=== PATIENT | female | born 1945 | race Caucasian/White ===

== ENCOUNTER 2016-07-17 08:15 | Emergency (ER) | payer MEDICARE, OTHER ==
[~2016-07-17 08:15] MED LIST: ADULT ASPIRIN81 MG PO; AIRET0.83 MG/ML IH; ASPIR-LOW81 MG; ASPIRIN; ASPIRIN325 M3 PO; ASPIRIN81 M1 PO; AUGMENTIN 875-1 EAC2 PO; AVALIDE 300-12.1 TAB; AZO DINE PO; CHERATUSSIN AC118 M1 PO; CPAP; CULTURELLE1 EAC1 PO; CYMBALTA60 M1 PO; CYMBALTA60 MG; CYMBALTA60 MG PO; DIFLUCAN150 MG PO; DIOVAN HCT 160/1 TA1 PO; DIOVAN HCT 3201 EACH PO; EFFEXOR; EFFEXOR XR150 M1 PO; EFFEXOR XR150 MG PO; FENOFIBRATE134 MG PO; FENTANYL1 EAC3 TD; FISH OIL 1,2001 CAP; FISH OIL 1,2001 CAP PO; FISH OIL 1,2001 EAC5 PO; FISH OIL SOFTG1 EAC1 PO; FISH OIL SOFTGE1 CA1 PO; FISH OIL1 CAP; GLUCOPHAGE1000 MG PO; GLUCOPHAGE500 M1 PO; GLUCOPHAGE500 M3 PO; GLUCOPHAGE500 MG; GLUCOPHAGE500 MG PO; GREEN COFFEE BEAN EX PO; HUMULIN N100 U/ML; HUMULIN N100 U/ML SQ; HUMULIN R 500; HUMULIN R U500 SC; HUMULIN R100 U/ML; HUMULIN R500 UNIT/2 SC; HYDROCODON-ACE1 EA16 PO; KEFLEX500 M4 PO; KLONOPIN1 M1 PO; LANTUS SOL100 UNIT/1 SC; LANTUS SOLOSTAR3 ML SQ; LEVAQUIN500 M1 PO; LEVAQUIN750 MG PO; LIPITOR40 M1 PO; LIPITOR40 MG PO; LOFIBRA PO; LOFIBRA134 MG PO; LYRICA50 MG; LYRICA75 MG; LYRICA75 MG/CAP PO; MIRALAX17 G2 PO; MOBIC; MOBIC15 M2 PO; MOBIC7.5 M2 PO; MULTIVITAMINS1 EAC6 PO; NORCO 5-325 TA1 EACH PO; NOVOLIN N100 U/ML SQ; NOVOLIN R100 U/ML; OMEPRAZOLE; OMEPRAZOLE20 M4 PO; OXYCODONE HCL5 M1 PO; PERCOCET 5-3251 EACH PO; PREDNISONE10 M1 PO; PREDNISONE10 MG PO; PREDNISONE20 M1 PO; RELAFEN; SENNA PLUS TAB1 EAC1 PO; SIMVASTATIN80 MG PO; SKELAXIN800 M3 PO; TOUJEO SOL300 UNIT/1 SC; TRILIPIX135 MG PO; TYLENOL EXTRA500 M1 PO; TYLENOL WITH C1 EACH PO; ULTRAM50 M1 PO; VICTOZA 2-0.6 MG/0.1 SC; VICTOZA0.6 MG/0.1 SQ; VITAMIN C1000 M1 PO; VITAMIN C1000 MG; VITAMIN C1000 MG PO; VITAMIN E1000 UNIT; VITAMIN E400 UNI4 PO; VITAMIN PO; VYTORIN 10/40 T1 TAB; XANAX; XANAX0.25 M1 PO; XANAX0.25 MG PO; ZITHROMAX250 M1 PO; ZOLOFT100 MG; [UNRECOGNIZED DRUG - OTHER]
[2016-07-17] MEDS ORDERED: INDERAL XL80 MG PO (08:55)
[2016-07-17] MEDS ORDERED: NORCO 5-325 TA1 EACH PO (10:28)
[2016-11-20] MEDS ORDERED: MECLIZINE HCL25 M3 PO (12:17)
[2016-11-20] MEDS ORDERED: TOUJEO SOL300 UNIT/1 SC (12:18)
[2016-11-20] MEDS ORDERED: KLONOPIN1 M1 PO (12:19)
[2016-11-20] MEDS ORDERED: ZOFRAN ODT4 MG SL (12:22)
[2016-11-20] MEDS ORDERED: GARCINIA CAMBO1 EAC1 PO (12:23)
[2016-11-20] MEDS ORDERED: ACETAMINOPHEN1 EAC4 PO (12:23)
[2016-11-20] MEDS ORDERED: APPLE CIDER VINEGAR PO (12:24)
[2016-11-20] MEDS ORDERED: BREO ELLIPTA 11 EAC1 INH (12:24)
[2016-11-20] MEDS ORDERED: XANAX0.25 M1 PO (14:27)
[2016-11-20] MEDS ORDERED: LOMOTIL 2.5-0.1 EACH PO (14:27)
[2016-11-21] MEDS ORDERED: ASPIRIN325 M3 PO (18:14)
[2016-12-18] MEDS ORDERED: KLONOPIN1 M1 PO (16:51)
[2016-12-18] MEDS ORDERED: ZOFRAN4 M2 PO (16:52)
[2016-12-18] MEDS ORDERED: TYLENOL PM EX-1 EAC4 PO (16:54)
[2016-12-26] MEDS ORDERED: PERCOCET 5-3251 EACH PO (16:26)
[2016-12-26] MEDS ORDERED: [UNRECOGNIZED DRUG - REMARK] (23:35)
[2016-12-27] MEDS ORDERED: VALSARTAN-HCTZ1 EA13 PO (12:14)
[2016-12-27] MEDS ORDERED: BUTALB-ACETAMI1 EAC1 PO (12:15)
[2016-12-27] MEDS ORDERED: CALAN SR120 M1 PO (12:18)
[2016-12-27] MEDS ORDERED: IMITREX100 M2 PO (12:21)
[2016-12-27] MEDS ORDERED: FISH OIL 1,2001 EAC4 PO (12:22)
[2016-12-27] MEDS ORDERED: [UNRECOGNIZED DRUG - CODE] PO (12:22)
[2016-12-27] MEDS ORDERED: DELTASONE20 MG PO (12:25)
[2016-12-27] MEDS ORDERED: PERCOCET 5-3251 EACH PO (12:30)
== END 2016-07-17 10:51 ==
LOC: EDMED 08:15
DX: S16.1XXA Strain of muscle, fascia and tendon at neck level, initial encounter (principal); S20.211A Contusion of right front wall of thorax, initial encounter; E11.9 Type 2 diabetes mellitus without complications; Z79.899 Other long term (current) drug therapy; W06.XXXA Fall from bed, initial encounter; Y92.013 Bedroom of single-family (private) house as the place of occurrence of the external cause

== ENCOUNTER 2016-07-24 17:18 | Emergency (ER) | payer MEDICARE, OTHER ==
[~2016-07-24 17:18] MED LIST changes: +INDERAL XL80 MG PO
[2016-07-24 18:42] LABS: BASO % 0.4 % (0-2); EOS % 2.5 % (0-7); EOSINOPHIL ABSOLUTE COUNT 0.1 tho/cmm (0.0-0.7); HGB-HEMOGLOBIN 13.2 gm/dl (12.0-15.5); IMMATURE GRANULOCYTES ABSOLUTE 0.01 tho/cmm (0-0.03); IMMATURE GRANULOCYTES PERCENT 0.2 % (0-0.3); LYMPH % 44.8 % (20-45); LYMPH ABSOLUTE COUNT 2.3 tho/cmm (0.8-4.5); MCH (MEAN CORPUSCULAR HGB) 30.5 pg (28.0-32.0); MCHC MEAN CORPUSCULAR HGB CONC 33.8 % (32.0-36.0); MCV (MEAN CELL VOLUME) 90.1 fl (82.0-96.0); MEAN PLATELET VOLUME 11.9 cmc (9.4-12.4); MONO % 7.6 % (0-12); MONOCYTE ABSOLUTE COUNT 0.4 tho/cmm (0.0-1.2); NEUTROPHIL ABSOLUTE COUNT 2.3 tho/cmm (1.6-8.0); NEUTROPHIL-AUTOMATED 2.3 tho/cmm (1.6-8.0); NEUTROPHILS % 44.5 % (40-80); PLATELET COUNT 112 tho/cmm (150-450); RED BLOOD COUNT 4.33 mil/cmm (4.00-5.20); RED CELL DISTRIBUTION WIDTH 13.4 % (12.4-16.4); WHITE BLOOD COUNT 5.2 tho/cmm (4.0-10.0)
[2016-07-24 19:02] LABS: ANION GAP 15 mmol/L (0-20); BLOOD UREA NITROGEN 30 mg/dl (6-24); CALCIUM 9.7 mg/dl (8.5-10.5); CARBON DIOXIDE-VENOUS 24 mmol/L (22-32); CHLORIDE 108 mmol/l (96-110); CREATININE 1.18 mg/dl (0.50-1.10); GLUCOSE 181 mg/dL (70-110); SODIUM 143 mmol/L (135-145); eGFR VALUE FOR BLACK 54 mL/Min
[2016-07-24 19:03] LABS: POTASSIUM 4.4 mmol/L (3.7-5.1)
[2016-07-24] MEDS ORDERED: PERCOCET 5-3251 EACH PO (19:32)
[2016-07-24] MEDS ORDERED: ZOFRAN ODT4 MG PO (19:32)
[2016-11-20] MEDS ORDERED: MECLIZINE HCL25 M3 PO (12:17)
[2016-11-20] MEDS ORDERED: TOUJEO SOL300 UNIT/1 SC (12:18)
[2016-11-20] MEDS ORDERED: KLONOPIN1 M1 PO (12:19)
[2016-11-20] MEDS ORDERED: ZOFRAN ODT4 MG SL (12:22)
[2016-11-20] MEDS ORDERED: GARCINIA CAMBO1 EAC1 PO (12:23)
[2016-11-20] MEDS ORDERED: ACETAMINOPHEN1 EAC4 PO (12:23)
[2016-11-20] MEDS ORDERED: APPLE CIDER VINEGAR PO (12:24)
[2016-11-20] MEDS ORDERED: BREO ELLIPTA 11 EAC1 INH (12:24)
[2016-11-20] MEDS ORDERED: LOMOTIL 2.5-0.1 EACH PO (14:27)
[2016-11-20] MEDS ORDERED: XANAX0.25 M1 PO (14:27)
[2016-11-21] MEDS ORDERED: ASPIRIN325 M3 PO (18:14)
[2016-12-18] MEDS ORDERED: KLONOPIN1 M1 PO (16:51)
[2016-12-18] MEDS ORDERED: ZOFRAN4 M2 PO (16:52)
[2016-12-18] MEDS ORDERED: TYLENOL PM EX-1 EAC4 PO (16:54)
[2016-12-26] MEDS ORDERED: PERCOCET 5-3251 EACH PO (16:26)
[2016-12-26] MEDS ORDERED: [UNRECOGNIZED DRUG - REMARK] (23:35)
[2016-12-27] MEDS ORDERED: VALSARTAN-HCTZ1 EA13 PO (12:14)
[2016-12-27] MEDS ORDERED: BUTALB-ACETAMI1 EAC1 PO (12:15)
[2016-12-27] MEDS ORDERED: CALAN SR120 M1 PO (12:18)
[2016-12-27] MEDS ORDERED: IMITREX100 M2 PO (12:21)
[2016-12-27] MEDS ORDERED: [UNRECOGNIZED DRUG - CODE] PO (12:22)
[2016-12-27] MEDS ORDERED: FISH OIL 1,2001 EAC4 PO (12:22)
[2016-12-27] MEDS ORDERED: DELTASONE20 MG PO (12:25)
[2016-12-27] MEDS ORDERED: PERCOCET 5-3251 EACH PO (12:30)
== END 2016-07-24 19:45 ==
LOC: EDMED 17:18
PROVIDERS: Emergency Medicine
DX: F07.81 Postconcussional syndrome (principal); R07.89 Other chest pain; E11.65 Type 2 diabetes mellitus with hyperglycemia; E11.22 Type 2 diabetes mellitus with diabetic chronic kidney disease; I12.9 Hypertensive chronic kidney disease with stage 1 through stage 4 chronic kidney disease, or unspecified chronic kidney disease; N18.9 Chronic kidney disease, unspecified; E78.5 Hyperlipidemia, unspecified; Z90.10 Acquired absence of unspecified breast and nipple; Z79.82 Long term (current) use of aspirin; Z79.4 Long term (current) use of insulin; Z79.899 Other long term (current) drug therapy

== ENCOUNTER 2016-12-10 12:49 | Emergency (ER) | payer MEDICARE, OTHER ==
[~2016-12-10] VITALS: Ht 160 cm; Wt 104.3 kg
[~2016-12-10 12:49] MED LIST changes: +ACETAMINOPHEN1 EAC4 PO; +APPLE CIDER VINEGAR PO; +ASPIRIN325 M3; +BREO ELLIPTA 11 EAC1 INH; +GARCINIA CAMBO1 EAC1 PO; +LOMOTIL 2.5-0.1 EACH PO; +LYRICA150 MG/CAP PO; +MECLIZINE HCL25 M3 PO; +ZOFRAN ODT4 MG PO; +ZOFRAN ODT4 MG SL
[2016-12-10 15:34] LABS: BASO % 0.2 % (0-2); EOS % 5.6 % (0-7); EOSINOPHIL ABSOLUTE COUNT 0.2 tho/cmm (0.0-0.7); HCT-HEMATOCRIT 37.1 % (34.0-49.0); HGB-HEMOGLOBIN 12.4 gm/dl (12.0-15.5); IMMATURE GRANULOCYTES ABSOLUTE 0.01 tho/cmm (0-0.03); IMMATURE GRANULOCYTES PERCENT 0.2 % (0-0.3); LYMPH % 41.6 % (20-45); LYMPH ABSOLUTE COUNT 1.8 tho/cmm (0.8-4.5); MCH (MEAN CORPUSCULAR HGB) 30.8 pg (28.0-32.0); MCHC MEAN CORPUSCULAR HGB CONC 33.4 % (32.0-36.0); MCV (MEAN CELL VOLUME) 92.1 fl (82.0-96.0); MONO % 8.6 % (0-12); MONOCYTE ABSOLUTE COUNT 0.4 tho/cmm (0.0-1.2); NEUTROPHIL ABSOLUTE COUNT 1.9 tho/cmm (1.6-8.0); NEUTROPHIL-AUTOMATED 1.9 tho/cmm (1.6-8.0); NEUTROPHILS % 43.8 % (40-80); PLATELET COUNT 141 tho/cmm (150-450); RED BLOOD COUNT 4.03 mil/cmm (4.00-5.20); RED CELL DISTRIBUTION WIDTH 13.3 % (12.4-16.4); WHITE BLOOD COUNT 4.3 tho/cmm (4.0-10.0)
[2016-12-10 15:45] LABS: ANION GAP 7 mmol/L (0-20); BLOOD UREA NITROGEN 23 mg/dl (6-24); CALCIUM 9.2 mg/dl (8.5-10.5); CARBON DIOXIDE-VENOUS 31 mmol/L (22-32); CHLORIDE 105 mmol/l (96-110); CREATININE 1.29 mg/dl (0.50-1.10); GLUCOSE 217 mg/dL (70-110); POTASSIUM 4.4 mmol/L (3.7-5.1); SODIUM 139 mmol/L (135-145); eGFR VALUE FOR BLACK 48 mL/Min
[2016-12-10] MEDS ORDERED: FIORINAL 50-321 EACH PO (16:43)
== END 2016-12-10 16:56 ==
LOC: EDMED 12:49
PROVIDERS: Emergency Medicine
DX: G43.909 Migraine, unspecified, not intractable, without status migrainosus (principal); E11.9 Type 2 diabetes mellitus without complications; I10 Essential (primary) hypertension; G47.33 Obstructive sleep apnea (adult) (pediatric); Z90.89 Acquired absence of other organs; Z79.899 Other long term (current) drug therapy; Z79.82 Long term (current) use of aspirin
CPT/HCPCS: J0780; J1200